=== PATIENT | female | born 1960 | race Caucasian/White ===

== ENCOUNTER 2022-04-06 04:36 | Emergency (ER) | payer OTHER, SELFPAY ==
--- NOTE | ~2022-04-06 | XR_ITS ---
EXAMINATION: XR SHOULDER, LEFT CLINICAL INFORMATION: Pain after fall COMPARISON: None TECHNIQUE: Three views of the left shoulder. FINDINGS: There is a minimally displaced fracture of the proximal humerus involving the neck and greater tuberosity. Adjacent soft tissue swelling is present. Glenohumeral alignment appears maintained. The acromioclavicular joint is intact. XR/XR shoulder LT min 2V IMPRESSION: Minimally displaced fracture of the proximal humerus involving the neck and greater tuberosity.
[2022-04-06 04:58] VITALS: BP 133/54; PULSE 71; RESP 18; TEMP 36.8; O2SAT 99; BMI 18.6
--- NOTE | 2022-04-06 06:34 | ED.EXTPRO ---
HPI - Extremity Problem General Chief complaint: Extremity Injury, Upper Stated complaint: fall, L arm pain Time Seen by Provider: 04/06/22 06:34 Source: patient Mode of arrival: ambulatory Limitations: no limitations History of Present Illness MD Complaint: extremity pain and joint pain Onset (ago): hour(s) (10 hours ago) Pain Consistency: constant Location: left and upper extremity Quality: aching and constant Radiation: none Relieving factors: immobilization Exacerbating factors: range of motion and palpation Associated symptoms: denies other symptoms Context: other (fell on outstretched arm while carrying towels landed with L arm out straight bearing most of her weight) Related Data Previous Rx's Medication Instructions Recorded cyclobenzaprine 10 mg tablet 10 mg PO TID PRN #14 tab 04/06/22 hydrocodone 5 mg-acetaminophen 325 1 tab PO Q6H PRN #12 tab 04/06/22 mg tablet lidocaine 5 % topical patch 1 patch TOPICAL DAILY #30 ea 04/06/22 ondansetron 4 mg disintegrating 4 mg PO Q8H PRN #20 tab 04/06/22 tablet Allergies Allergy/AdvReac Type Severity Reaction Status Date / Time No Known Allergies Allergy Verified 04/06/22 04:58 Review of Systems Review of Systems: Constitutional : No Fever, No Chills ENT/Mouth : No Ear Pain, No Hoarseness, No sore throat Eyes: No Eye Pain, No Swelling, No Redness, No Foreign Body Cardiovascular : No Chest Pain, No SOB Respiratory : No Cough, No Dyspnea Gastrointestinal : No Nausea, No Vomiting, No Diarrhea, No abdominal Pain Genitourinary : No Dysuria, No Hematuria Musculoskeletal : positive joint pain, No Myalgias, No Joint Swelling Skin : No Skin lacerations, No rash Neuro : No Weakness, No Numbness, No Loss of Consciousness, No Dizziness, No Headache PMFSH Past Medical History Attestation statement: The following information was validated with the patient. Medical History No pertinent past medical history Social History Social History (Updated 04/06/22 @ 06:54 by Babita Ruggiero DO) Patient Tobacco Use Status: Never used Tobacco Advance Directives: No Advance Directives Information Provided: No Physical Exam Vital Signs: Vital Signs: Last Vital Signs Temp 98.2 F 04/06/22 04:58 Pulse 71 04/06/22 04:58 Resp 18 04/06/22 04:58 BP 133/54 L 04/06/22 04:58 Pulse Ox 99 04/06/22 04:58 BMI result Body Mass Index 18.6 Appearance: Alert. Oriented X3. No acute distress. Eyes: Pupils equal, round and reactive to light. ENT: Pharynx normal. Neck: Normal inspection. Neck supple. CVS: Normal heart rate and rhythm. Pulses normal. Respiratory: No respiratory distress. Breath sounds normal. Abdomen: Atraumatic Skin: Skin warm and dry. Normal skin color. Normal skin turgor. Extremities: No lower extremity edema. L arm distal NV intact, contusion mild inner left arm - ttp along L upper arm cannot range arm Neuro: Oriented X 3. No motor deficit. No sensory deficit. MDM - Extremity (Nontraumatic) MDM Narrative Medical decision making narrative: 61 yo female otherwise healthy here with c/o isolated L arm injury post fall no DOAC no head or neck pain L arm is non dominant she is NV intact - xrays show humerus fracture will sling and start on pain medications refer to orthopedics Procedures Orthopedic Splinting/Casting Injury #1: Side: left Upper Extremity Injury Location: shoulder Upper Extremity Immobilizer: sling/shoulder immobilizer Additional Comments: NV intact post sling Discharge Plan Discharge Clinical Impression: Fracture of proximal humerus Patient Disposition: Home, Self-Care Instructions: Arm Fracture in Adults (ED) Additional Instructions: return to ED for any worsening symptoms or concerns rest ice pain control with motrin and pain medications (monitor tylenol intake) wear sling except to shower Minimally displaced fracture of the proximal humerus involving the neck and greater tuberosity. Prescriptions: New cyclobenzaprine 10 mg tablet 10 mg PO TID PRN (Reason: muscle spasm) Qty: 14 0RF hydrocodone-acetaminophen 5-325 mg tablet 1 tab PO Q6H PRN (Reason: pain) Qty: 12 0RF Rx Instructions: partial fill okay lidocaine 5 % adhesive patch,medicated 1 patch topical DAILY Qty: 30 0RF Rx Instructions: leave on most painful area for up to 12 hrs ondansetron 4 mg tablet,disintegrating 4 mg PO Q8H PRN (Reason: nausea and vomiting) Qty: 20 0RF Referrals: Camille Garcia PA-C [Physician Clinical Mental Health Counselor] - 1 week Stand Alone Forms: Work/School Release
[2022-04-06 07:35] VITALS: BP 149/62; PULSE 92; RESP 18; O2SAT 97
== END 2022-04-06 07:37 | disposition home or self-care (01) ==
PROVIDERS: Emergency Provider Emergency Medicine; PCP Family Medicine
DX: S42.202A Unspecified fracture of upper end of left humerus, initial encounter for closed fracture (principal); W01.0XXA Fall on same level from slipping, tripping and stumbling without subsequent striking against object, initial encounter; Y93.9 Activity, unspecified; Y92.9 Unspecified place or not applicable; Y99.9 Unspecified external cause status; Z79.899 Other long term (current) drug therapy
CPT/HCPCS: 29105; 73030; 99283

== ENCOUNTER 2022-04-17 07:54 | Outpatient (REF) | payer OTHER, SELFPAY ==
--- NOTE | ~2022-04-17 | XR_ITS ---
EXAMINATION: XR SHOULDER, LEFT CLINICAL INFORMATION: Pain. COMPARISON: Radiographs dated 04/06/2022. TECHNIQUE: AP external rotation, Grashey, scapular Y, and axillary views of the left shoulder. FINDINGS: Bony mineralization is normal. A mildly displaced crescentic fracture fragment is redemonstrated arising from the greater tuberosity of the proximal left humerus. The previously noted left humeral neck fracture is less well appreciated on these views. No significant callus formation is seen. The glenohumeral, acromioclavicular and coracoclavicular joints appear intact. The soft tissue planes are unremarkable, without foreign body. XR/XR shoulder LT min 2V IMPRESSION: A slightly displaced fracture of the greater tuberosity of the proximal left humerus is redemonstrated. A previously noted humeral neck fracture line is less well appreciated than on prior. No gross change in alignment is noted. There is no significant new callus formation.
== END 2022-04-17 07:55 | disposition home or self-care (01) ==
LOC: HO.HOSX 07:54
PROVIDERS: Visit Provider Physician Assistant
DX: M25.512 Pain in left shoulder (principal)
CPT/HCPCS: 73030

== ENCOUNTER 2022-05-18 07:42 | Outpatient (REF) | payer OTHER, SELFPAY ==
--- NOTE | ~2022-05-18 | XR_ITS ---
EXAMINATION: XR SHOULDER, LEFT CLINICAL INFORMATION: Pain. COMPARISON: Radiographs dated 04/17/2022 and 04/06/2022. TECHNIQUE: AP neutral and scapular Y views of the left shoulder are submitted. FINDINGS: There is bony demineralization. The glenohumeral joint is intact. The acromioclavicular and coracoclavicular intervals are normal. There is stable alignment of a mildly displaced fracture fragment of the greater tuberosity of the proximal left humerus. There is stable alignment of a mildly displaced left humeral neck fracture. There is new callus formation noted. No dislocation is seen. There is no abnormal soft tissue calcification, gas or foreign body. No left pneumothorax is seen. XR/XR shoulder LT min 2V IMPRESSION: There is stable alignment of proximal left humeral fracture fragments, as detailed. There is continued callus formation.
== END 2022-05-18 07:43 | disposition home or self-care (01) ==
LOC: HO.HOSX 07:42
PROVIDERS: Visit Provider Physician Assistant
DX: M25.512 Pain in left shoulder (principal)
CPT/HCPCS: 73030

== ENCOUNTER 2022-06-29 08:01 | Outpatient (REF) | payer OTHER, SELFPAY ==
--- NOTE | ~2022-06-29 | XR_ITS ---
EXAMINATION: XR SHOULDER, LEFT CLINICAL INFORMATION: Left shoulder pain COMPARISON: None TECHNIQUE: 3 views of the left shoulder. FINDINGS: There is a depressed fracture left greater tuberosity. No additional fracture seen. The glenohumeral and AC joint alignment is preserved. The soft tissues are normal. There is no dislocation. XR/XR shoulder LT min 2V IMPRESSION: Depressed fracture left greater tuberosity. No dislocation or additional fracture seen.
== END 2022-06-29 08:02 | disposition home or self-care (01) ==
LOC: HO.HOSX 08:01
PROVIDERS: Visit Provider Physician Assistant
DX: M25.512 Pain in left shoulder (principal)
CPT/HCPCS: 73030